=== PATIENT | female | born 2000 | race Caucasian/White ===

== ENCOUNTER → 2025-04-11 11:16 | Outpatient (REF) | payer OTHER, SELFPAY | LOC: RAD 11:16 | PROVIDERS: ATTENDING PHYSICIAN Nurse Practitioner; FAMILY PHYSICIAN Student in an Organized Health Care Education/Training Program | DX: N30.10 Interstitial cystitis (chronic) without hematuria (principal) | CPT/HCPCS: 76770; 76856 ==